=== PATIENT | male | born 1935 | race Caucasian/White ===

== ENCOUNTER → 2018-05-05 | Outpatient (CLI) | payer OTHER | LOC: BHFA 14:15 | PROVIDERS: ATTEND Nurse Practitioner Adult Health | DX: R55 Syncope and collapse (principal); I48.91 Unspecified atrial fibrillation; I47.1 Supraventricular tachycardia ==

== ENCOUNTER → 2018-06-18 | Outpatient (CLI) | payer OTHER | LOC: BHFA 14:00 | PROVIDERS: ATTEND Internal Medicine Interventional Cardiology | DX: R55 Syncope and collapse (principal); I48.91 Unspecified atrial fibrillation ==